=== PATIENT | female | born 1950 | race Caucasian/White ===

== ENCOUNTER 2017-11-04 09:03 | Outpatient (CLI) | payer MEDICARE ==
[~2017-11-04 09:03] MED LIST: Iopamidol 370 76% 100 ML VIAL ONE
--- NOTE | 2017-11-04 14:37 | CT ---
EXAM: POSTCONTRAST SOFT TISSUE NECK CT: COMPARISON: 05/24/16. HISTORY: Sialadenitis. Right submandibular mass x 2 years. Cough. TECHNIQUE: Postcontrast soft tissue neck CT is performed in the axial plane. Sagittal and coronal 3-dimensional reformatted images are submitted for interpretation. FINDINGS: Visualized brain parenchyma is unremarkable. Bilateral ocular lenses are appropriately located. Both globes are intact. Retrobulbar fat is prese rved. Symmetric attenuation of the optic nerve and ocular rectus muscles. Adequate aeration of the sinuses and mastoid air cells. Aerodigestive tract is patent. No mucosal abnormality. Epiglottis has a normal caliber. Preepiglot tic fat is preserved. Midline fatty raphae of the tongue is preserved. No obvious masses in the ora l cavity. Evaluation is limited due to dental amalgam artifact. The supraglottic, glottic, and subglottic larynx are unremarkable. Stable heterogeneous attenuation of the thyroid gland with subcentimeter hypodensities. Symmetric attenuation of the sternocleidomastoid muscles. No evidence of lymphadenopathy by size cri teria. Stable right intraparotid lymph node measuring 1.3 x 0.7 cm. Symmetric attenuation of the submandibu lar glands. There is no evidence of infection or inflammation. No evidence of sialadenitis along th e expected course of the right or left submandibular gland. No obvious calcifications in the right o r left sublingual space. Upper mediastinum is unremarkable. Chronic changes in the lung apices. Cervical spine vertebral body height is maintained. No fracture. IMPRESSION: 1. Stable right intraparotid lymph node. 2. No CT evidence of sialadenitis or CT evidence of a sialolith. POS: [facility]
== END 2017-11-04 09:04 | disposition home or self-care (01) ==
LOC: SCSCT 09:03
PROVIDERS: ATTEND Otolaryngology Plastic Surgery within the Head & Neck
DX: K11.20 Sialoadenitis, unspecified (principal)
CPT/HCPCS: 70491

== ENCOUNTER 2017-12-18 07:38 | Outpatient (CLI) | payer MEDICARE ==
[2017-12-18] MEDS ORDERED: Sodium Chloride 0.9% 10 ML ONE (09:58)
--- NOTE | 2017-12-18 11:10 | NM ---
HEPATOBILIARY STUDY: Date: 12-18-17 History: Calculus of bowel duct without cholangitis or cholecystitis. Radiopharmaceutical: 5.2 mCi Technetium 99M Mebrofenin, IV. Views: Anterior FINDINGS: There is normal uptake and excretion of radiotracer by the liver. Bowel activity is partially visuali zed by 27 minutes with increasing activity in the gallbladder, imaging up to 60 minutes. The gallblad alma is not imaged up to 60 minutes. As a result, 2 mg of Morphine Sulfate was administered intravenou sly and a 75 minute delayed image was obtained, and again, the gallbladder is not visualized. IMPRESSION: 1. Absence of activity within the gallbladder. In the absence of a prior history of cholecystectomy, findings are worrisome for acute cholecystitis. Absence of gallbladder activity can also be seen in p atients in a non-fasting state, but the clinical dietetic technician reports appropriate fasting for t he patient. 2. Above findings discussed with Dr. Novak on 12-18-17 at 1052 hours. POS: [facility]
== END 2017-12-18 07:39 | disposition home or self-care (01) ==
LOC: NM 07:38
PROVIDERS: ATTEND Internal Medicine
DX: K80.50 Calculus of bile duct without cholangitis or cholecystitis without obstruction (principal); Z90.49 Acquired absence of other specified parts of digestive tract
CPT/HCPCS: 78227; A9537; A4216; J2270

== ENCOUNTER 2017-12-26 00:06 | Observation (INO) | payer MEDICARE ==
[2017-12-26] MEDS ORDERED: Acetaminophen 500 MG TAB ONE (04:32)
[2017-12-26] MEDS ORDERED: Morphine 4 MG/ML VIAL SLOW IVP PRN ×2 (05:22)
[2017-12-26] MEDS: Sodium Chloride 0.9% 1,000 ML IV SCH ×2 (05:26→13:10)
[2017-12-26 06:08] VITALS: BMI 34.7
[2017-12-26 08:14] VITALS: TEMP 97.6
--- NOTE | 2017-12-26 08:30 | ULT ---
PRELIMINARY REPORT/[facility]/EMERGENCY AFTER HOURS PROCEDURE: EXAM: US Abdomen Limited, Right Upper Quadrant EXAM DATE/TIME: Exam ordered 12/26/2017 1:36 AM CLINICAL HISTORY: 67 years old, female; Pain; Other: Increasing upper abd pain TECHNIQUE: Real-time ultrasound of the right upper quadrant with image documentation. COMPARISON: No relevant prior studies available. FINDINGS: Liver: Hepatic steatosis. No intrahepatic bile duct dilation. Gallbladder: Gallbladder is distended but otherwise normal. No wall thickening or pericholecystic flu id. Common bile duct: Unremarkable as visualized. No stones. No dilation. Pancreas: Unremarkable as visualized. Right kidney: Unremarkable. No stones. No solid mass. No hydronephrosis. IMPRESSION: No acute findings. Thank you for allowing us to participate in the care of your patient. Dictated and Authenticated by: Bernardo Dunn MD 12/26/2017 2:42 AM Central Time ([place] & [place]) FINAL REPORT RIGHT UPPER QUADRANT ULTRASOUND: EMERGENCY AFTER HOURS EXAM TIME: 1:37 a.m. DATE: 12/26/17. FINDINGS: No evidence of gallstones or ductal dilatation. Moderately distended gallbladder. No ductal dilatat ion. Coarse liver echogenicity, evidence for nonspecific diffuse hepatic parenchymal process. IMPRESSION: Somewhat dilated distended gallbladder without overt gallstones or gallbladder wall thickening or per icholecystic fluid. If there is concern for acalculous cholecystitis, followup nuclear medicine hepa tobiliary scan might be of benefit. Coarse liver echogenicity, evidence for nonspecific diffuse hepa tic parenchymal process. No ductal dilatation. POS: [facility]
[2017-12-26] MEDS ORDERED: Midazolam HCl 2 mg/2 ml Vial ONE (11:27)
[2017-12-26] MEDS ORDERED: Fentanyl 250 MCG/5 ML VIAL ONE (11:27)
[2017-12-26] MEDS ORDERED: HYDROmorphone 0.5 MG/0.5 ML SYRINGE ONE (11:27)
--- NOTE | 2017-12-26 11:28 | HP ---
DATE OF ADMISSION: 12/26/2017 HISTORY OF PRESENT ILLNESS: Ms. Hayes is a 67-year-old woman, who [facility] [place], [place], with recurrent epigastric right upper quadrant abdominal pain. Pain dates back to 10 d ays previously, at which time patient underwent ultrasound of the abdomen, which showed dilated gallb ladder with no stones. HIDA scan was obtained on 12/18/2017 and the gallbladder was not visualized. The patient was to be seen in outpatient clinic for possible elective cholecystectomy. However, she presented to the emergency department last night with severe 10/10 epigastric to right upper quadran t pain, which started approximately 1800 hours. She had a chicken salad for lunch. She had some christian p for dinner prior to the onset of this abdominal pain. She denies any fevers or chills. Abdomen oneill s been bloated over the last 10 days. She denies any diarrhea. PAST MEDICAL HISTORY: Significant for migraine, gastroesophageal reflux disease, and hypothyroidism. PAST SURGICAL HISTORY: Pertinent for bilateral intraocular lens implant, multiple hand surgeries, C- section through a low-Pfannenstiel incision, abdominal hysterectomy through an infraumbilical midline incision. SOCIAL HISTORY: The patient is and lives at home with her . She admits to occasional intake of ethanol in moderate amounts. She denies any cigarette smoking or illicit drug abuse. FAMILY HISTORY: Noncontributory for this patient's age. PREHOSPITALIZATION MEDICATIONS: Includes amitriptyline 100 mg p.o. daily; calcium carbonate 1200 mg p.o. daily; levothyroxine 37.5 mcg p.o. daily; Benicar/HCT 20 mg/12.5 mg, she takes half a tablet p.o . daily; Protonix 40 mg p.o. daily. ALLERGIES: PENICILLIN, ERYTHROMYCIN BASED, and CELECOXIB. REVIEW OF SYSTEMS: A 10-point review of systems essentially unremarkable except for as stated in pas t medical history and chief complaint. PHYSICAL EXAMINATION: GENERAL: This reveals a 67-year-old normally developed woman, who is otherwise coherent and interact tonia and appears stated age. The patient is alert and oriented x3, appears to be in no acute distress at the time of my evaluation. VITAL SIGNS: Today includes blood pressure 111/74, pulse is 66, respiratory rate is 14, temperature is 97.6 degrees Fahrenheit, oxygen saturation is 96% on room air. HEENT EXAMINATION: Reveals normocephalic and atraumatic. Pupils are equal, round, and reactive to l ight and accommodation. Extraocular muscles are intact bilaterally. No scleral icterus present. Or al mucosa is pink and moist. No lesions are noted. NECK: Supple. No palpable lymphadenopathy or thyromegaly present. HEART: Reveals a regular rate and rhythm, no murmurs, rubs, or gallops auscultated. LUNGS: Clear to auscultation bilaterally. Breathing regular and unlabored. ABDOMEN: Soft with epigastric to right upper quadrant tenderness to palpation. Liver and spleen non palpable below costal margins. EXTREMITIES: Reveals 2+ radial and pedal pulses bilaterally. No ankle edema is present. NEUROLOGICAL EXAMINATION: Reveals no focal deficits present. PERTINENT LABORATORY FINDINGS: From [place] includes sodium 141, potassium 3.9, chloride is 105, b icarbonate 23, BUN 26.4, creatinine is 1.0, glucose 133, total bilirubin 0.4, AST and ALT normal at 4 2 and 30 respectively. Serum lipase is normal at 78. CBC with 8800 white blood cells, hemoglobin 13.9, hematocrit is 40.3, platelet count is 233,000. Stefany garcia personally reviewed the HIDA scan, which was obtained on 12/18/2017. Gallbladder is not visualiz ed at 60 minutes. In fact, morphine was administered and it delayed 75 minutes image, failed to visu mei the gallbladder as well. I have also reviewed the abdominal ultrasound, which was obtained on 12/26/2017, which reveals a markedly distended gallbladder with common bile duct, which is normal in diameter at 0.51. Gallbladder wall is not thickened and there are no gallstones present. IMPRESSION: Recurrent acalculous cholecystitis. PLAN: Laparoscopic cholecystectomy. Above findings and plan has been discussed with the patient and her at bedside. I have advised the patient of the risk and benefits of the proposed surgery . Risks include, but not limited to bleeding, infection, injury to bile duct or surrounding structur es. The patient and indicates understanding of information given. I have answered their que stions. The patient has granted consent for this admission and surgical intervention.
[2017-12-26] MEDS ORDERED: Bupivacaine/Epinephrine 0.25% 30 ML VIAL ONE (11:37)
[2017-12-26] MEDS ORDERED: Iothalamate Meglumine 60% 50 ML VIAL FS ONE (11:37)
[2017-12-26] MEDS ORDERED: CEFAZOLIN/Water 2 GM/20 ML SYRINGE ONE (11:57)
[2017-12-26] MEDS ORDERED: Acetaminophen 1,000 MG in Premix Bag 1 BAG IVPB SCH (12:00)
[2017-12-26] MEDS ORDERED: traMADol HCl 50 MG TAB PO PRN ×2 (13:33)
[2017-12-26] MEDS ORDERED: Ibuprofen 600 MG TAB PO PRN (13:34)
[2017-12-26] MEDS ORDERED: Promethazine HCl 25 MG/ML VIAL IM PRN (13:48)
[2017-12-26] MEDS ORDERED: Promethazine HCl 25 MG/ML VIAL SLOW IVP PRN (13:48)
[2017-12-26] MEDS ORDERED: Ondansetron HCl/PF 4 MG/2 ML Vial IVP PRN (13:48)
--- NOTE | 2017-12-26 13:57 | OP ---
DATE OF OPERATION: 12/26/2017 PREOPERATIVE DIAGNOSIS: Acute acalculous cholecystitis. POSTOPERATIVE DIAGNOSIS: Acute acalculous cholecystitis. OPERATION PERFORMED: Laparoscopic cholecystectomy. SURGEON: Johan Kaur D.O. ANESTHESIA: General endotracheal. ESTIMATED BLOOD LOSS: 10 mL. FLUIDS GIVEN: 800 mL of crystalloids. INDICATIONS FOR PROCEDURE: A 67-year-old woman presented with recurrent epigastric to right upper qu adrant postprandial abdominal pain. Clinical and radiographic examination was consistent with acute acalculous cholecystitis for which the patient was brought to the operating room for cholecystectomy. Findings are consistent with a markedly enlarged gallbladder in the usual anatomic location partially encased by omental adhesions. DESCRIPTION OF PROCEDURE: Informed consent obtained from the patient who was brought to the operatin g room and placed in supine position. Following general anesthesia, abdomen was sterilely prepped an d draped in usual fashion. Skin below the umbilicus was infiltrated with 0.25% Marcaine with epineph rine. A small curvilinear infraumbilical incision was made using an 11 scalpel. An umbilical stalk grasped with Almaz's and elevated. Veress needle inserted through the incision and placed in the pe ritoneal cavity through which the abdomen was insufflated with 3 liters of CO2 gas. Intraabdominal p ressure was noted at 1 mmHg. Following abdominal insufflation, Veress needle was removed and a 5 mm trocar introduced into the peritoneal cavity using the Visiport under laparoscopy. Laparoscopy confi rmed proper placement of the port, no injuries to underlying structures. Additional laparoscopy reve aled markedly distended gallbladder in the usual anatomic location partially encased by omental adhes ions. Under laparoscopy, a 12 mm epigastric and two 5 mm right lateral subcostal ports were placed a fter the overlying skin was infiltrated with 0.25% Marcaine with epinephrine and appropriate incision s made. The patient was placed in the reverse Trendelenburg position, rotated to her left. I introd uced a Prestige grasper through the right lateral subcostal port grasping the fundus of the gallbladd er which was elevated cephalad. Using a [place] dissector with cautery, omental adhesions were take n down from the gallbladder with good hemostasis. A second Prestige grasper was introduced through t he right medial subcostal port grasping the Aranda's pouch which was retracted laterally. Cystic du ct was carefully dissected free from surrounding structures at the triangle of Calot. The duct was d ivided between clips applying two clips proximally and one clip at the junction of the cystic duct an d gallbladder. The cystic artery dissected free from surrounding structures and divided between clip s in a similar fashion. Gallbladder was removed from the liver bed with good hemostasis. Gallbladde r delivered of the abdominal cavity using an EndoCatch. Operative site was inspected for good hemost asis. Finding no other pathology, laparoscopy was terminated. Fascia of the epigastric port site wa s closed using 0 Vicryl suture and Endo closure device under laparoscopy. Abdomen was desufflated. All ports and instruments removed and accounted for. Skin incisions closed using 4-0 Monocryl suture in subcuticular fashion. Dermabond was applied over the incisional closure. The patient tolerated the operation without any apparent complication and was returned to recovery room in a satisfactory c ondition.
[2017-12-26] MEDS ORDERED: Promethazine HCl 25 MG/ML VIAL ONE (13:58)
[2017-12-26] MEDS ORDERED: Acetaminophen 500 MG TAB PO SCH (14:00)
[2017-12-26] MEDS ORDERED: Succinylcholine Chloride 20 MG/ML 10 ml SYRINGE FS ONE (15:21)
[2017-12-26] MEDS ORDERED: Propofol 200 MG/20 ML VIAL ONE (15:21)
[2017-12-26] MEDS ORDERED: Ondansetron HCl/PF 4 MG/2 ML Vial ONE (15:21)
[2017-12-26] MEDS ORDERED: Dexamethasone 20 MG/5 ML VIAL ONE (15:21)
[2017-12-26] MEDS ORDERED: Lidocaine 1% PF 5 ML VIAL ONE (15:21)
[2017-12-26] MEDS ORDERED: Ketorolac Tromethamine 30 MG/ML VIAL ONE (15:21)
[2017-12-26] MEDS ORDERED: Glycopyrrolate 0.2 MG/ML 5 ML SYRINGE ONE (15:21)
[2017-12-26 16:55] VITALS: BP 119/82
--- NOTE | 2017-12-26 18:19 | RAD ---
Please disregard this report. The images were sent under the wrong patient. INTRAOPERATIVE CHOLANGIOGRAM: 12/26/17 HISTORY: 67-year-old female for intraoperative cholecystectomy common duct evaluation. Three portable fluoroscopic spot films are presented for interpretation. There is injection in the cy stic duct. The common bile duct superiorly is mildly dilated and mildly dilated common hepatic duct. At the distal common bile duct, there is a bulbous slight dilatation of the common bile duct with no emptying into the duodenum. There is a smaller ductal structure which is also filling off the common bile duct which probably represents the pancreatic duct. It appears to be depressed considerably caud ally and is markedly thinned and irregular. This appearance certainly raises the possibility of a lar ge pancreatic mass. IMPRESSION: Please disregard this report Mild dilation of the upper common bile duct and common hepatic duct without emptying into the duodenu m. There is a bulbous slight dilatation at the end of the distal common duct. There appears to be a s maller caliber ductal structure which appears to come off of the common bile duct and descend and the n extend towards the left side. This probably represents a very abnormal appearing pancreatic duct wh ich appears to be possibly displaced by large mass effect, the marked irregularity of the pancreatic duct could certainly be seen in association with pancreatic cancer or bad pancreatitis. Findings were discussed with Dr. Kaur at the time of this study. Code CR POS: [facility]
== END 2017-12-26 18:49 | disposition home or self-care (01) ==
LOC: ERS 00:06 → SURG A 02:32
PROVIDERS: ADMIT Surgery; ATTEND Surgery
PROC: 0FT44ZZ Resection of Gallbladder, Percutaneous Endoscopic Approach (ICD-10-PCS; principal; 2017-12-26)
DX: K81.2 Acute cholecystitis with chronic cholecystitis (principal); G43.909 Migraine, unspecified, not intractable, without status migrainosus; K21.9 Gastro-esophageal reflux disease without esophagitis; E03.9 Hypothyroidism, unspecified; I10 Essential (primary) hypertension; Z88.0 Allergy status to penicillin; Z88.6 Allergy status to analgesic agent; Z88.8 Allergy status to other drugs, medicaments and biological substances; Z79.899 Other long term (current) drug therapy
CPT/HCPCS: 47532; 47562; 76705; 86850; 86900; 86901; 88304; 96360; 96361; 96374; 96375; 99285; G0378; 36415; J0131; J1100; J1170; J1885; J2001; J2250; J2405; J2550; J2704; J3010; Q9961

== ENCOUNTER 2018-05-18 05:44 | Day surgery (SDC) | payer MEDICARE ==
[2018-05-17 12:15] VITALS: BMI 32.2
[2018-05-18 07:06] LABS: #Eosinphils 0.2 thou/uL (0.0-0.7); #Monocytes 0.6 thou/uL (0.11-0.59); #Neutrophils 3.2 thou/uL (1.40-6.50); %Basophils 0.5 % (0.0-1.0); %Eosinophils 2.5 % (0.0-10.0); %Lymphocytes 42.8 % (21.0-51.0); %Monocytes 8.1 % (0.0-10.0); Hemoglobin 13.9 g/dL (12.0-16.0); Mean Corpuscular Hemoglobin 29.1 pg (27.0-31.0); Mean Corpuscular Volume 85.6 fL (78.0-98.0); Mean Platelet Volume 7.4 fL (7.4-10.4); Platelet Count 227 thou/uL (130-400); RBC Distribution Width 11.9 % (11.5-14.5); Red Blood Cell (RBC) Count 4.78 mill/uL (4.20-5.40)
[2018-05-18 07:24] LABS: Anion Gap 16 mmol/L (10-20); BUN (Urea Nitrogen) 20 mg/dL (9.8-20.1); Calc. Creatinine Clearance 71 mL/min (70-130); Calcium 9.5 mg/dL (7.8-10.44); Carbon Dioxide 20 mmol/L (23-31); Chloride 109 mmol/L (98-107); Estimated GFR-MDRD 64; Glucose 106 mg/dL (80-115); Potassium 4.6 mmol/L (3.5-5.1); Sodium 140 mmol/L (136-145)
--- NOTE | 2018-05-18 07:51 | RAD ---
CHEST TWO VIEWS: HISTORY: Preoperative exam. COMPARISON: 05/24/2016 FINDINGS: Slight elongation of the aorta. Normal cardiac silhouette. Lungs and pleural spaces are clear. No pneumothorax or osseous abnormalities. IMPRESSION: No acute cardiopulmonary process. POS: [facility]
[2018-05-18 07:57] LABS: Bilirubin Negative (Negative); Blood, Urine Negative (Negative); Clarity CLEAR (Clear); Glucose, Urine (Dipstick) Negative (Negative); Leukocyte Trace (Negative); Nitrite Negative (Negative); Protein, Urine (Dipstick) Negative (Neg-Trace); Specific Gravity, Urine 1.011 (1.002-1.036); Urobilinogen 0.2 mg/dL (0.2-1.0); pH, Urine 5.5 (5.0-9.0)
[2018-05-18 07:59] LABS: Bacteria/HPF None Seen HPF (None Seen); Hyaline Casts/LPF 0-3 HYALINE CAST LPF (0-3 Hyaline); Pathc Cast-AUWi Flag 0.14 (0-2.49); RBC/HPF 0-3 HPF (0-3); Squamous Epithelial 0-3 HPF (0-3); WBC/HPF 0-3 HPF (0-3)
--- NOTE | 2018-05-18 10:09 | RAD ---
LEFT THUMB 2 VIEWS: Date: 05/18/18 INDICATION: Arthrodesis first MCP joint of left hand. FINDINGS: Intraoperative fluoroscopic imaging performed for arthrodesis of the first MCP joint. Overlying surgi colby devices are present and there is plate and screw fixation seen involving the first and second ray s. Detail otherwise limited. IMPRESSION: Intraoperative radiographs as above. POS: [facility]
[2018-05-18] MEDS ORDERED: ePHEDrine/0.9% NaCl/PF SYRINGE 50 mg/10 ml ONE (10:27)
[2018-05-18] MEDS ORDERED: Ondansetron HCl/PF 4 MG/2 ML Vial ONE (10:27)
[2018-05-18] MEDS ORDERED: PROPOFOL 200 MG/20 ML VIAL ONE (10:27)
[2018-05-18] MEDS ORDERED: PHENYLEPHRINE-NS 100 MCG/ML 10 ML SYRINGE ONE (10:27)
[2018-05-18] MEDS ORDERED: Lidocaine 1% PF 5 ML VIAL ONE (10:27)
--- NOTE | 2018-05-18 10:56 | OP ---
DATE OF PROCEDURE: 05/18/2018 PREOPERATIVE DIAGNOSIS: Right thumb metacarpophalangeal joint osteoarthritis. POSTOPERATIVE DIAGNOSIS: Right thumb global instability radial collateral, ulnar collateral and thum b palmar capsule. FINDINGS: A completely lax radial and ulnar collateral and thumb joint palmar capsule with very thin dorsal capsule as well. Two previous procedures with the implants occupying all but the distal 15 m m of the metacarpal dorsal surface. PROCEDURE PERFORMED: 1. Arthrotomy with synovectomy. 2. Arthrodesis left thumb metacarpophalangeal joint using cup and cone technique with cerclage wire 2 K-wires and a compression Synthes 2-4 screw. 3. C-arm supervision. ESTIMATED BLOOD LOSS: 10 mL. TOURNIQUET TIME: 75 minutes. FINDINGS: Greater than 65% chondral loss on both surfaces, metacarpal head and base of the proximal phalanx of this left thumb. INDICATIONS: Listed above. DESCRIPTION OF PROCEDURE: After successful general LMA technique, the patient's limb was prepped and draped. The patient had the chondral procedures as described above seen radiographically, had globa l instability as described and has already had 2 procedures on the carpometacarpal joint, but still h as enough rotation that we fused metacarpophalangeal joint should be able to reach the [place] 8-9 p osition. For this reason, the patient had undergone prep and drape and timeout and the limb was prepared. Onc e time out was confirmed, brought C-arm in the field, confirmed the joint position and then gave her 10 mL 0.5% Marcaine block along the area of expected incision. We began with the distal portion of t he previous incision, carried across the joint in a zigzag fashion extended at 15 mm distal joint. W e went to the extensor mechanism which was already where the bridge between the two extensors were __ __ and split them. We then saw minimal capsule seen in the course and with the global stability conf irmed with the joint open as it had been prior to opening the skin. We then exposed the joint comple tely, enough that it was easy to open in an open book manner because there was no collateral stabilit y, so we were able to remove the chondral surfaces posteriorly first, then the chondral surfaces in t he central and dorsal aspect, medial and lateral where we found asymmetric wear on the central and do rsal portion of the metacarpal head and the central and palmar portion of the base of the proximal ph alanx occupying almost 65% of both surfaces with complete ____ bone. Once we finished removing the chondral surface with a combination of [place] blade, an osteotome, we then used a bur to create a cup and cone completely denuded bone surface until we exposed soft subchondral bone. We then used a 20 gauge standard needle as a drill guide, drilled it 1 cm on either side of the joint , through the base of the proximal phalanx and into the distal neck of the metacarpal using the C-arm to prevent contact in the anchor hardware in the distal end of the metacarpal. Once this was done, we placed the 24 gauge wire through which to be used to help compress. We then placed 3 guidewires f rom the cannulated screw set all. We did release a 15 mm bone bridge at appropriate angle and set th e fusion angle therefore, at 25 degrees of flexion at the MP joint. Once we did that, C-arm confirmed compression, physically compressed the joint, and then we used the K-wire commercial collections driver to machine tighten the cerclage wire. C-arm confirmed excellent position and then we placed a 2-4 cannulated screw across the joint and khadijah n had excellent compression point, we could not even get a [place] blade between of the bone surfaces. The wires were in appropriate position. The screw was compressed in the bone and the wires were cut flush with the bone. We released the tourniquet. We then obtained hemostasis, closed the extensor m echanism with a running 4-0 Prolene with [id number] sutures in a buried knot. We continued to o btain hemostasis subcutaneously, we had a running 4-0 Monocryl undyed and then 4-0 nylon interrupted mattress pattern of epidermal closure. Bulky dressing was applied. A thumb spica splint and the pat ient left the operating room without evidence of anesthetic or operative complication.
== END 2018-05-18 11:27 | disposition home or self-care (01) ==
LOC: SDC 05:44
PROVIDERS: ATTEND Orthopaedic Surgery Hand Surgery
PROC: 0RGV04Z Fusion of Left Metacarpophalangeal Joint with Internal Fixation Device, Open Approach (ICD-10-PCS; principal; 2018-05-18)
PROC: 0RBV0ZZ Excision of Left Metacarpophalangeal Joint, Open Approach (ICD-10-PCS; 2018-05-18)
DX: M25.342 Other instability, left hand (principal); K21.9 Gastro-esophageal reflux disease without esophagitis; I10 Essential (primary) hypertension; E78.00 Pure hypercholesterolemia, unspecified; E78.5 Hyperlipidemia, unspecified; E03.9 Hypothyroidism, unspecified; Z79.899 Other long term (current) drug therapy; Z88.0 Allergy status to penicillin; Z88.8 Allergy status to other drugs, medicaments and biological substances; Z98.890 Other specified postprocedural states
CPT/HCPCS: 26135; 26850; 71046; 73140; 76001; 80048; 85025; 93005; C1713; 81003; 81015; 93010; J2001; J2405; J2704

== ENCOUNTER 2021-03-09 15:30 | Emergency (ER) | payer MEDICARE ==
[2021-03-09 16:02] LABS: Bilirubin Negative (Negative); Blood, Urine Negative (Negative); Clarity Clear (Clear); Glucose, Urine (Dipstick) Normal (Negative); Ketone, Urine Negative (Negative); Leukocyte Negative Leu/uL (Negative); Nitrite Negative (Negative); Protein, Urine (Dipstick) Negative (Neg-Trace); Specific Gravity, Urine 1.006 (1.002-1.036); Urobilinogen Normal mg/dL (Less than 2); pH, Urine 6.5 (5.0-9.0)
[2021-03-09] MEDS ORDERED: Diltiazem 125 MG/25 ML ONE (16:12)
[2021-03-09 16:16] LABS: #Eosinphils 0.1 thou/uL (0.0-0.7); #Lymphocytes 1.5 thou/uL (1.20-3.40); #Monocytes 0.2 thou/uL (0.11-0.59); #Neutrophils 8.9 thou/uL (1.40-6.50); %Basophils 0.2 % (0.0-1.0); %Eosinophils 0.8 % (0.0-10.0); %Monocytes 1.7 % (0.0-10.0); %Neutrophils 83.3 % (42.0-75.0); Hemoglobin 14.4 g/dL (12.0-16.0); Mean Corpuscular HGB CONC 34.6 g/dL (32.0-36.0); Mean Corpuscular Hemoglobin 28.4 pg (27.0-31.0); Mean Corpuscular Volume 82.1 fL (78.0-98.0); Mean Platelet Volume 7.6 fL (7.4-10.4); Platelet Count 286 thou/uL (130-400); RBC Distribution Width 12.7 % (11.5-14.5); Red Blood Cell (RBC) Count 5.06 mill/uL (4.20-5.40); White Blood Cell (WBC) Count 10.7 thou/uL (4.8-10.8)
[2021-03-09 16:24] LABS: PTT 28.7 sec (22.9-36.1); Prothrombin Time 13.3 sec (12.0-14.7)
[2021-03-09 16:37] LABS: ALT (SGPT) 21 U/L (8-55); AST (SGOT) 18 U/L (5-34); Albumin 4.2 g/dL (3.4-4.8); Alkaline Phosphatase 124 U/L (40-110); Anion Gap 12 mmol/L (10-20); BUN (Urea Nitrogen) 18 mg/dL (9.8-20.1); Bilirubin, Total 0.3 mg/dL (0.2-1.2); CK (CPK) 113 U/L (29-168); Calc. Creatinine Clearance 0 mL/min (70-130); Calcium 9.9 mg/dL (7.8-10.44); Carbon Dioxide 24 mmol/L (23-31); Chloride 108 mmol/L (98-107); Globulin 3.3 g/dL (2.4-3.5); Glucose 128 mg/dL (83-110); Potassium 3.7 mmol/L (3.5-5.1); Protein, Total 7.5 g/dL (5.8-8.1); Sodium 140 mmol/L (136-145)
== END 2021-03-09 19:07 | disposition home or self-care (01) ==
LOC: ERS 15:30
DX: D32.9 Benign neoplasm of meninges, unspecified (principal); I10 Essential (primary) hypertension; K21.9 Gastro-esophageal reflux disease without esophagitis; E03.9 Hypothyroidism, unspecified; Z79.899 Other long term (current) drug therapy
CPT/HCPCS: 36415; 70450; 71045; 80053; 81003; 82550; 83880; 85025; 85610; 85730; 93005

== ENCOUNTER → 2022-06-11 | Outpatient (CLI) | payer MEDICARE | LOC: CTENTCT 14:00 | PROVIDERS: ATTEND Specialist | DX: J01.91 Acute recurrent sinusitis, unspecified (principal) | CPT/HCPCS: 70486 ==

== ENCOUNTER 2023-01-30 15:07 | Outpatient (CLI) | payer MEDICARE ==
[2023-01-30 16:04] LABS: Hemoglobin 14.1 g/dL (12.0-15.5); Mean Corpuscular HGB CONC 33.2 g/dL (32.0-36.0); Mean Corpuscular Hemoglobin 27.8 pg (27.0-33.0); Mean Corpuscular Volume 83.8 fl (81.6-98.3); Mean Platelet Volume 10.2 fl (7.4-10.4); Platelet Count 300 10x3/uL (150-450); RBC Distribution Width 13.3 % (11.5-14.5); Red Blood Cell (RBC) Count 5.07 10x6/uL (3.90-5.03); White Blood Cell (WBC) Count 7.3 10x3/uL (3.5-10.5)
[2023-01-30 16:17] LABS: PTT 27.6 sec (22.0-33.0); Prothrombin Time 10.7 sec (9.5-12.1)
== END 2023-01-30 15:08 | disposition home or self-care (01) ==
LOC: LABBT 15:07
PROVIDERS: ATTEND Neurological Surgery
DX: Z01.812 Encounter for preprocedural laboratory examination (principal); D32.9 Benign neoplasm of meninges, unspecified
CPT/HCPCS: 85027; 85610; 85730

== ENCOUNTER 2023-01-30 15:30 | Inpatient (IN) | payer MEDICARE ==
[2023-02-03] MEDS ORDERED: Thrombin 5000 UNITS/5 ML VIAL ONE (06:14)
[2023-02-03] MEDS ORDERED: EPINEPHrine 1 MG/ML AMP ONE (06:14)
[2023-02-03] MEDS ORDERED: Bacitracin Zinc Ointment 30 gm TUBE ONE (06:14)
[2023-02-03] MEDS ORDERED: Lidocaine 1% (PF) 30 ML VIAL ONE (06:14)
[2023-02-03] MEDS ORDERED: Levofloxacin 500 mg/D5W 100 ml Premix Bag ONE (06:27)
[2023-02-03] MEDS ORDERED: Magnesium 5 GM/10 ML VIAL ONE (06:55)
[2023-02-03] MEDS ORDERED: Dexmedetomidine 200 MCG/2 ML VIAL ONE (06:55)
[2023-02-03] MEDS ORDERED: KETAMINE 100 MG/ML (5ML VIAL) ONE (06:55)
[2023-02-03] MEDS ORDERED: Propofol 1,000 MG/100 ML VIAL IV ONE (06:55)
[2023-02-03] MEDS ORDERED: Clindamycin/D5W 900 mg/50 ml Premix Bag ONE (06:56)
[2023-02-03] MEDS ORDERED: Docusate 100 MG CAP PO PRN (06:58)
[2023-02-03] MEDS ORDERED: hydrALAZINE 20 MG/ML VIAL SLOW IVP PRN ×2 (06:58→10:25)
[2023-02-03] MEDS ORDERED: Promethazine HCl 25 MG/ML VIAL IM PRN ×2 (06:58→11:10)
[2023-02-03] MEDS ORDERED: diphenhydrAMINE 50 MG/ML VIAL IVP PRN (06:58)
[2023-02-03] MEDS ORDERED: Mag-Al 1200 mg/1200 mg/30 ML UDCUP PO PRN (06:58)
[2023-02-03] MEDS ORDERED: Labetalol HCl 100 MG/20 ML VIAL SLOW IVP PRN (06:58)
[2023-02-03] MEDS ORDERED: Ondansetron PF 4 MG/2 ML Vial IVP PRN (06:58)
[2023-02-03] MEDS ORDERED: Scopolamine 1.5 mg/72 hour Patch ONE (07:07)
[2023-02-03] MEDS ORDERED: Famotidine/PF 20 mg/2ml Vial ONE ×2 (07:07)
[2023-02-03] MEDS ORDERED: Pantoprazole 40 MG VIAL ONE (07:07)
[2023-02-03] MEDS ORDERED: MINERAL OIL/WHITE PETROLATUM 3.5 GM TUBE ONE (07:12)
[2023-02-03] MEDS ORDERED: Rocuronium Bromide 10 MG/ML (10ML VIAL) ONE (07:16)
[2023-02-03] MEDS ORDERED: Ondansetron PF 4 MG/2 ML Vial ONE (07:16)
[2023-02-03] MEDS ORDERED: diphenhydrAMINE 50 MG/ML VIAL ONE (07:16)
[2023-02-03] MEDS ORDERED: Vecuronium 10 MG VIAL ONE (07:16)
[2023-02-03] MEDS ORDERED: Dexamethasone 20 MG/5 ML VIAL ONE (07:16)
[2023-02-03] MEDS ORDERED: Lidocaine 1% PF 5 ML VIAL ONE (07:16)
[2023-02-03] MEDS ORDERED: ePHEDrine Sulfate 50 MG/10 ML VIAL ONE ×2 (07:16→10:44)
[2023-02-03] MEDS ORDERED: Calcium Chloride 1 GM/10 ML Abboject SYRINGE ONE (07:16)
[2023-02-03] MEDS ORDERED: PHENYLEPHRINE-NS 100 MCG/ML 10 ML SYRINGE ONE ×2 (07:16→10:41)
[2023-02-03] MEDS ORDERED: PROPOFOL 200 MG/20 ML VIAL ONE (07:16)
[2023-02-03] MEDS ORDERED: traMADol HCl 50 MG TAB PO PRN (07:36)
[2023-02-03] MEDS ORDERED: Vasopressin 20 UNITS/ML VIAL ONE (08:12)
[2023-02-03] MEDS ORDERED: Phenylephrine 10 MG/ML VIAL ONE (08:34)
[2023-02-03] MEDS ORDERED: Vancomycin 1 GM VIAL ONE (08:36)
[2023-02-03] MEDS ORDERED: Rocuronium Bromide 50 MG/5 ML VIAL ONE (09:32)
[2023-02-03] MEDS ORDERED: SUGAMMADEX SODIUM 200 MG/2 ML VIAL ONE (09:36)
[2023-02-03] MEDS ORDERED: niCARdipine 25 MG/10 ML SDV ONE (10:10)
[2023-02-03] MEDS ORDERED: Ondansetron HCl/PF 4 MG/2 ML Vial IVP PRN (11:10)
[2023-02-03] MEDS: Sodium Chloride 0.9% 1,000 ML IV SCH ×2 (11:30→17:13)
[2023-02-03] MEDS: Levothyroxine Sodium 75 MCG TAB PO SCH ×2 (12:12→12:19)
[2023-02-03] MEDS: Famotidine 20 MG TAB PO SCH ×2 (12:12→21:31)
[2023-02-03] MEDS ORDERED: Labetalol HCl 100 MG/20 ML VIAL ONE (12:43)
[2023-02-03] MEDS: Labetalol HCl 100 MG/20 ML VIAL SLOW IVP PRN ×2 (12:46→16:38)
[2023-02-03] MEDS: Clindamycin/D5W 900 MG in Premix Bag 1 BAG IVPB SCH ×2 (12:47→18:37)
[2023-02-03] MEDS ORDERED: fentaNYL 50 mcg/mL 1 mL Vial ONE (13:07)
[2023-02-03] MEDS: Acetaminophen 325 MG TAB PO PRN ×2 (15:14→21:30)
[2023-02-03 15:44] VITALS: BMI 34.6
[2023-02-03] MEDS: niCARdipine 25 MG in Sodium Chloride 0.9% 250 ML 250 ML IVPB SCH ×2 (17:33→21:40)
[2023-02-03] MEDS: levETIRAcetam 500 MG TAB PO SCH (21:31)
[2023-02-04] MEDS: Clindamycin/D5W 900 MG in Premix Bag 1 BAG IVPB SCH (00:02)
[2023-02-04] MEDS: niCARdipine 25 MG in Sodium Chloride 0.9% 250 ML 250 ML IVPB SCH (01:31)
[2023-02-04] MEDS: Sodium Chloride 0.9% 1,000 ML IV SCH (06:54)
[2023-02-04] MEDS: Levothyroxine Sodium 75 MCG TAB PO SCH (08:34)
[2023-02-04] MEDS: levETIRAcetam 500 MG TAB PO SCH (08:34)
[2023-02-04] MEDS: Famotidine 20 MG TAB PO SCH (08:56)
[2023-02-04 10:53] VITALS: BP 117/91
[2023-02-04 16:24] VITALS: TEMP 98.1
== END 2023-02-04 17:00 | disposition home or self-care (01) | DRG 27 ==
LOC: SURG A 02-03 05:31 → CCU 02-03 14:21
PROVIDERS: ADMIT Neurological Surgery; ATTEND Neurological Surgery
PROC: 00B70ZZ Excision of Cerebral Hemisphere, Open Approach (ICD-10-PCS; principal; 2023-02-03)
PROC: 8E09XBZ Computer Assisted Procedure of Head and Neck Region (ICD-10-PCS; 2023-02-03)
DX: D32.0 Benign neoplasm of cerebral meninges (principal); M19.90 Unspecified osteoarthritis, unspecified site; E78.00 Pure hypercholesterolemia, unspecified; H40.9 Unspecified glaucoma; I10 Essential (primary) hypertension; Z98.49 Cataract extraction status, unspecified eye; Z90.49 Acquired absence of other specified parts of digestive tract; Z98.890 Other specified postprocedural states; Z82.49 Family history of ischemic heart disease and other diseases of the circulatory system; Z79.899 Other long term (current) drug therapy; Z79.890 Hormone replacement therapy; Z88.0 Allergy status to penicillin; Z88.8 Allergy status to other drugs, medicaments and biological substances; Z88.1 Allergy status to other antibiotic agents; Z91.040 Latex allergy status
CPT/HCPCS: 88307; 88331; 88341; 88342; C1713; C1769; C9113; J0171; J0360; J1100; J1200; J1956; J2001; J2370; J2405; J2704; J3010; J3370; J3475; J3490; J7050; S0028